=== PATIENT | female | born 1960 | race Caucasian/White ===

== ENCOUNTER → 2021-11-13 | Outpatient (CLI) | payer MEDICARE | LOC: RAD 10:34 | DX: M25.561 Pain in right knee (principal); M17.11 Unilateral primary osteoarthritis, right knee | CPT/HCPCS: 73564 ==

== ENCOUNTER → 2021-11-20 | Outpatient (CLI) | payer MEDICARE | LOC: RAD 10:36 | DX: M25.562 Pain in left knee (principal); M17.12 Unilateral primary osteoarthritis, left knee | CPT/HCPCS: 73562 ==

== ENCOUNTER → 2021-12-03 | Outpatient (CLI) | payer MEDICARE | LOC: KOH-I 15:42 | DX: M25.561 Pain in right knee (principal); M71.21 Synovial cyst of popliteal space [Baker], right knee; M17.11 Unilateral primary osteoarthritis, right knee | CPT/HCPCS: 73721 ==

== ENCOUNTER → 2022-01-23 | Outpatient (CLI) | payer MEDICARE | LOC: EXRD 01-14 10:30 | DX: Z78.0 Asymptomatic menopausal state (principal) | CPT/HCPCS: 77080 ==

== ENCOUNTER → 2022-06-12 | Outpatient (CLI) | payer MEDICARE | LOC: EMI 08:00 | DX: G43.719 Chronic migraine without aura, intractable, without status migrainosus (principal); G44.89 Other headache syndrome; R42 Dizziness and giddiness; J32.8 Other chronic sinusitis | CPT/HCPCS: 70551 ==